=== PATIENT | female | born 1995 | race Caucasian/White ===

== ENCOUNTER 2017-07-18 23:57 | Emergency (ER) | payer OTHER ==
[~2017-07-18] VITALS: Ht 162.6 cm; Wt 80.9 kg
[~2017-07-18 23:57] MED LIST: CITA20TA4 PO; MEDR150I IM; NAPR-1168 PO; TRIA0.02 TOP
[2017-07-19 00:01] VITALS: TEMP 36.5; Ht 162.6 cm; Wt 80.9 kg
[2017-07-19] MEDS ORDERED: XYLOCAINE 1%/SOD BICARB 20 ML VIAL INFIL ONE (00:30)
[2017-07-19] MEDS ORDERED: DOXY100C76 PO (00:57)
[2017-07-19] MEDS ORDERED: OXYCODONE IR HOME PACK PO ONE (01:00)
[2017-07-19 01:12] VITALS: BP 122/70; PULSE 80; O2SAT 98
--- NOTE | 2017-07-19 01:48 | EMERGENCY ROOM VISIT NOTE ---
History First contact with patient: 00:08 Chief Complaint: INFECTION Stated Complaint: LUMP ON INNER THIGH NEAR GROIN AREA Nursing Triage Summary: c/o abscess to left inner thight that she was recently treated for that is not improving. History of Present Illness The patient is a 22 year old female who presents to the Emergency Room with complaints of left thigh infection for the past few days he saw family care yesterday and was started on antibiotics. She has had recurrent infections before. She was placed on doxycycline. Patient states the area got more swollen and painful for her. Patient has not seen a boat puller yet for this. Patient denies fevers, chest pain, dyspnea, nausea, vomiting, numbness, tingling, weakness. She is tolerating p.o. fluids and food. No IV drug abuse. Review of Systems A 6 system review of systems was completed with positives and pertinent negatives listed in the HPI. Past Medical/Surgical History HS Social History Smoking Status: Current Every Day Smoker Smokeless Tobacco Use: No Drug Use: none Occupation Status: employed Current/Historical Medications Scheduled Doxycycline Monohydrate (Monodox), 100 MG PO BID Medroxyprogesterone Acetate (C (Depo-Provera Contraceptiv), 150 MG IM Q3 MONTHS Physical Exam Vital Signs Date Time Temp Pulse Resp B/P (MAP) Pulse Ox O2 Delivery O2 Flow Rate FiO2 07/19/17 01:12 80 20 122/70 98 07/19/17 00:01 36.5 94 16 151/86 98 Room Air Physical Exam VITALS: Vitals are noted on the nurse's note and reviewed by myself. Vital signs stable. GENERAL: Pleasant female, in no acute distress, nondiaphoretic, well-developed well-nourished. SKIN: Capillary reflex less than 2 seconds. HEENT: Normocephalic. PERRLA. EOMI. Nares patent. Mucous membranes moist. Neck is supple without nuchal rigidity. HEART: Regular rate and rhythm without murmurs gallops or rubs. LUNGS: Clear to auscultation bilaterally without wheezes, rales or rhonchi. No retractions or accessory muscle use. ABDOMEN: Positive bowel sounds x 4. Normal tympanic percussion. Soft, nontender, without masses or organomegaly. Allred sign negative. No guarding or rebound tenderness. MUSCULOSKELETAL: No gross musculoskeletal defects. No pedal edema. No calf tenderness. Left proximal inner thigh with palpable abscess 2 cm x 2 cm that is fluctuant with minimal erythema. No lymphangitis. No inguinal lymph node enlargement. NEURO: Patient was alert and oriented to person place and time. Normal sensation to light and sharp touch. No focal neurological deficits. Medical Decision & Procedures Medications Administered Medications (Trade) Dose Ordered Sig/Shaq Route Start Time Stop Time Status Last Admin Dose Admin Oxycodone HCl (Roxicodone Immediate Rel 5MG Home Pack) 1 homepack UD ONCE PO 07/19/17 01:00 07/19/17 01:01 DC 07/19/17 01:00 1 HOMEPACK Procedure Incision & Drainage Indication: Abscess. Location: left inner thigh Verbal consent was obtained after the risks and benefits were explained, including but not limited to bleeding, scarring, infection, pain, and bone/joint /nerve damage. At this time, the risks of the procedure are less than the risks of NOT performing the procedure. A time out was taken and the correct patient and site identified. The skin was prepped with betadine and a sterile field set. The wound was anesthetized with 4 ml of 1% lidocaine without epinephrine. The abscess cavity was entered with a number 11 blade and bloody purulent material expressed. Copious irrigation was performed using normal saline. The wound was explored for foreign bodies and none found. Debridement was not performed. Packing placed and a sterile dressing applied. Detailed wound care instructions and signs and symptoms of worsening infection reviewed with the patient. No complications and the patient tolerated the procedure well. ED Course Prior records reviewed and summarized as above. Triage Nursing notes reviewed. The patient's history was concerning for swelling and redness of the skin. Differential diagnosis: Etiologies such as cellulitis, abscess, MRSA infection, DVT, necrotizing fasciitis, dermatitis, drug eruption, as well as others were entertained.. Physical examination: The physical examination was consistent with abscess ER treatment provided: I&D as above On reassessment the patient felt better. Diagnostics interpreted by me: Wound culture pending This appears to be abscess. This is drained as above and packed. Patient was advised to follow-up Friday for wound repacking and reevaluation with family care. She is given the packing material. She is informed not to open it. She is advised to continue her antibiotics. Her exam and history seem most consistent with HS. She has had a recurrent problem with this but has not seen a boat puller yet. She has not tried any creams either. Patient had no lymphangitis. She is afebrile nontoxic. No history of IV drug abuse. She is counseled on wound care and all questions are answered. She is advised to return to the ER mediate for fevers, pain, spreading infection, worsening signs or symptoms or as needed. By the evaluation outlined above emergent etiologies such as necrotizing fasciitis, DVT, as well as others were deemed relatively unlikely. The pt informed about the findings as listed above. All questions were answered and pleased with the treatment. Return instructions were outlined and the patient was discharged in stable condition. Referral: The patient was referred back to primary care physician for follow-up in 2 to 3 days for a recheck of the current condition. The chart was completed utilizing [employer] Speech voice recognition software. Grammatical errors, random word insertions, pronoun errors, and incomplete sentences are an occassional consequence of this system due to software limitations, ambient noise, and hardware issues. Any formal questions or concerns about the content, text, or information contained within the body of this dictation should be directly addressed to the physician surveyor's assistant for clarification. Medical Decision As above Medication Reconcilliation Current Medication List: was personally reviewed by me Blood Pressure Screening Patient's blood pressure: Normal blood pressure Impression Primary Impression: Abscess of left thigh Departure Information Dispostion Home / Self-Care Condition GOOD Forms WORK / SCHOOL INSTRUCTIONS, HOME CARE DOCUMENTATION FORM, IMPORTANT VISIT INFORMATION Patient Instructions Hidradenitis Suppurativa, My [facility] Additional Instructions Continue antibiotics as prescribed by her family care doctor. Frequently change the outer dressing. Do not remove the inner dressing. Bring your packing material to your follow-up appointment on Friday, do not open this container. Recommend that you see a boat puller for your ongoing skin problems. Ibuprofen(Motrin, Advil) may be used for fever or pain. Use 600mg every six hours as needed. Take with food. Avoid using more than 2400mg in a 24 hour period. Do not use 2400mg per day for more than three consecutive days without physician direction. Prolonged inappropriate use can lead to stomach upset or ulcers. (AND/OR) Acetaminophen(Tylenol) may be used for fever or pain. Use 1000mg every six hours as needed. Avoid using more than 3000mg in a 24 hour period. Rest and drink plenty of fluids. Continue current medications. Return to the ER for severe pain, persistent fevers, spreading redness, or any worsening of your condition. Follow up with your primary physician within 2-3 days for a recheck of the current condition.
[2017-07-19] MEDS ORDERED: OXYC-609 PO (18:21)
[2017-07-19] MEDS ORDERED: SULF800T23 PO (19:49)
== END 2017-07-19 01:14 | disposition home or self-care (01) ==
LOC: C.EDB 23:58 → C.EDC 07-19 01:14
DX: L02.416 Cutaneous abscess of left lower limb (principal); F17.200 Nicotine dependence, unspecified, uncomplicated; Z79.3 Long term (current) use of hormonal contraceptives

== ENCOUNTER 2017-07-19 17:44 | Emergency (ER) | payer OTHER ==
[~2017-07-19] VITALS: Ht 162.6 cm; Wt 79.8 kg
[~2017-07-19 17:44] MED LIST changes: +DOXY100C76 PO
[2017-07-19 17:46] VITALS: TEMP 36.4; Ht 162.6 cm; Wt 79.8 kg
[2017-07-19] MEDS ORDERED: SODIUM CHLORIDE 0.9% 1000ML 1,000 ML IV STA (17:53)
[2017-07-19 18:21] LABS: BASO % 0.2 %; BASO ABS # 0.02 K/uL (0-0.2); EOS % 0.8 %; EOS ABS # 0.08 K/uL (0-0.5); HEMATOCRIT 38.2 % (37-47); HEMOGLOBIN 13.2 g/dL (12.0-16.0); IG# 0.03 K/uL (0.00-0.02); LYMPH % 20.5 %; LYMPH ABS # 1.94 K/uL (1.2-3.4); MEAN CELL VOLUME 85.5 fL (80-100); MEAN CORPUSCULAR HEMOGLOBIN 29.5 pg (25-34); MEAN CORPUSCULAR HGB CONC 34.6 g/dl (32-36); MEAN PLATELET VOLUME 9.2 fL (7.4-10.4); MONO ABS # 0.66 K/uL (0.11-0.59); NEUT % 71.2 %; NEUT ABS # 6.75 K/uL (1.4-6.5); PLATELET COUNT 222 K/uL (130-400); RED CELL DISTRIBUTION WIDTH CV 13.5 % (11.5-14.5); RED CELL DISTRIBUTION WIDTH SD 41.8 fL (36.4-46.3); WHITE BLOOD COUNT 9.48 K/uL (4.8-10.8)
[2017-07-19] MEDS ORDERED: OXYC-609 PO (18:21)
[2017-07-19 18:34] LABS: PTT PATIENT 25.2 SECONDS (21.0-31.0)
[2017-07-19 18:50] LABS: ALBUMIN 3.5 gm/dl (3.4-5.0); ALT/SGPT 17 U/L (12-78); BLOOD UREA NITROGEN 9 mg/dl (7-18); CALCIUM 8.5 mg/dl (8.5-10.1); CARBON DIOXIDE 22 mmol/L (21-32); CREATININE 0.85 mg/dl (0.60-1.20); GLUCOSE 116 mg/dl (70-99); LIPASE 90 U/L (73-393); SODIUM 140 mmol/L (136-145)
[2017-07-19 18:58] LABS: ALKALINE PHOSPHATASE 100 U/L (45-117); AST/SGOT 9 U/L (15-37); CKMB < 0.5 ng/ml (0.5-3.6); TOTAL PROTEIN 6.9 gm/dl (6.4-8.2)
[2017-07-19] MEDS ORDERED: POTASSIUM CHLORIDE 10 MEQ TABCR PO STA (19:42)
[2017-07-19] MEDS ORDERED: SULFAMETHOXAZOLE/TRIMETHOPRIM DS 800/160MG TAB PO ONE (19:45)
[2017-07-19] MEDS ORDERED: SULF800T23 PO (19:49)
--- NOTE | 2017-07-19 19:50 | EMERGENCY ROOM VISIT NOTE ---
History Report prepared by Marino: Ketan Knapp Under the Supervision of: Dr. Diego Zuluaga D.O. First contact with patient: 17:50 Chief Complaint: SYNCOPE Stated Complaint: LIGHT HEADED, PASSED OUT History of Present Illness The patient is a 22 year old female who presents to the Emergency Room with complaints of syncope that occurred just prior to arrival. She had a cyst on inner thigh that was drained yesterday at [facility] and given oxycodone and antibiotics. When she went to checkout at [facility] today, she sat down because she felt lightheaded, felt her vision and hearing faded, and then slid off the bench. She states her right arm feels very weak and that she feels shaky. She states she has a headache with an unknown head strike. She denies any bumps on her head. Of note, she is on the DepoProvera shot. 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 She denies any bumps on her head. Review of Systems See HPI for pertinent positives & negatives. A total of 10 systems reviewed and were otherwise negative. Social History Smoking Status: Current Every Day Smoker Alcohol Use: none Drug Use: none Housing Status: lives with family Occupation Status: employed Current/Historical Medications Scheduled Doxycycline Monohydrate (Monodox), 100 MG PO BID Medroxyprogesterone Acetate (C (Depo-Provera Contraceptiv), 150 MG IM Q3 MONTHS Sulfa/Trimethoprim (Bactrim Ds 800MG/160MG), 1 TAB PO BID Scheduled PRN Oxycodone HCl (Oxycodone HCl), 5 MG PO Q6 PRN for Pain Allergies Coded Allergies: Amoxicillin (Verified Allergy, Intermediate, hives, 07/19/17) Latex (Verified Allergy, Unknown, Hands break out into hives and itchiness., 07/19/17) Reported by PT. Physical Exam Vital Signs Date Time Temp Pulse Resp B/P (MAP) Pulse Ox O2 Delivery O2 Flow Rate FiO2 07/19/17 19:54 76 16 103/61 99 Room Air 07/19/17 19:10 89 16 119/64 99 Room Air 07/19/17 18:39 119/64 127/70 126/63 07/19/17 18:38 77 18 116/61 98 Room Air 07/19/17 18:09 85 07/19/17 17:46 36.4 97 18 146/85 99 Room Air Physical Exam CONSTITUTIONAL/VITAL SIGNS: Reviewed / noted above. GENERAL: Non-toxic in appearance. INTEGUMENTARY: Warm, dry, and [place]. HEAD: Normocephalic. EYES: without scleral icterus or trauma. ENT/OROPHARYNX: clear and moist. LYMPHADENOPATHY/NECK: Is supple without lymphadenopathy or meningismus. RESPIRATORY: Lungs clear and equal. CARDIOVASCULAR: Regular rate and rhythm. GI/ABDOMEN: Soft and nontender. No organomegaly or pulsatile mass. No rebound or guarding. Normal bowel sounds. EXTREMITIES: Warm and well perfused. BACK: No CVA tenderness. NEUROLOGICAL: Intact without focal deficits. PSYCHIATRIC: normal affect. MUSCULOSKELETAL: Normally developed with good muscle tone. Medical Decision & Procedures Laboratory Results 07/19/17 18:05 Red Blood Count 4.47, Mean Corpuscular Volume 85.5, Mean Corpuscular Hemoglobin 29.5, Mean Corpuscular Hemoglobin Concent 34.6, Mean Platelet Volume 9.2, Neutrophils (%) (Auto) 71.2, Lymphocytes (%) (Auto) 20.5, Monocytes (%) (Auto) 7.0, Eosinophils (%) (Auto) 0.8, Basophils (%) (Auto) 0.2, Neutrophils # (Auto) 6.75, Lymphocytes # (Auto) 1.94, Monocytes # (Auto) 0.66, Eosinophils # (Auto) 0.08, Basophils # (Auto) 0.02 07/19/17 18:05 Test 07/19/17 18:05 07/19/17 19:15 White Blood Count 9.48 K/uL (4.8-10.8) Red Blood Count 4.47 M/uL (4.2-5.4) Hemoglobin 13.2 g/dL (12.0-16.0) Hematocrit 38.2 % (37-47) Mean Corpuscular Volume 85.5 fL (80-100) Mean Corpuscular Hemoglobin 29.5 pg (25-34) Mean Corpuscular Hemoglobin Concent 34.6 g/dl (32-36) Platelet Count 222 K/uL (130-400) Mean Platelet Volume 9.2 fL (7.4-10.4) Neutrophils (%) (Auto) 71.2 % Lymphocytes (%) (Auto) 20.5 % Monocytes (%) (Auto) 7.0 % Eosinophils (%) (Auto) 0.8 % Basophils (%) (Auto) 0.2 % Neutrophils # (Auto) 6.75 K/uL (1.4-6.5) Lymphocytes # (Auto) 1.94 K/uL (1.2-3.4) Monocytes # (Auto) 0.66 K/uL (0.11-0.59) Eosinophils # (Auto) 0.08 K/uL (0-0.5) Basophils # (Auto) 0.02 K/uL (0-0.2) RDW Standard Deviation 41.8 fL (36.4-46.3) RDW Coefficient of Variation 13.5 % (11.5-14.5) Immature Granulocyte % (Auto) 0.3 % Immature Granulocyte # (Auto) 0.03 K/uL (0.00-0.02) Prothrombin Time 10.5 SECONDS (9.0-12.0) Prothromb Time International Ratio 1.0 (0.9-1.1) Activated Partial Thromboplast Time 25.2 SECONDS (21.0-31.0) Partial Thromboplastin Ratio 1.0 Anion Gap 8.0 mmol/L (3-11) Est Creatinine Clear Calc Drug Dose 105.2 ml/min Estimated GFR () 111.9 Estimated GFR (Non- 96.6 BUN/Creatinine Ratio 10.2 (10-20) Calcium Level 8.5 mg/dl (8.5-10.1) Magnesium Level 1.9 mg/dl (1.8-2.4) Total Bilirubin 0.4 mg/dl (0.2-1) Direct Bilirubin 0.1 mg/dl (0-0.2) Aspartate Amino Transf (AST/SGOT) 9 U/L (15-37) Alanine Aminotransferase (ALT/SGPT) 17 U/L (12-78) Alkaline Phosphatase 100 U/L (45-117) Total Creatine Kinase 78 U/L (26-192) Creatine Kinase MB < 0.5 ng/ml (0.5-3.6) Creatine Kinase MB Ratio (0-3.0) Troponin I < 0.015 ng/ml (0-0.045) Total Protein 6.9 gm/dl (6.4-8.2) Albumin 3.5 gm/dl (3.4-5.0) Lipase 90 U/L (73-393) Thyroid Stimulating Hormone (TSH) 0.917 uIu/ml (0.300-4.500) Urine Color YELLOW Urine Appearance CLOUDY (CLEAR) Urine pH 6.0 (4.5-7.5) Urine Specific Martin 1.018 (1.000-1.030) Urine Protein NEG (NEG) Urine Glucose (UA) NEG (NEG) Urine Ketones NEG (NEG) Urine Occult Blood NEG (NEG) Urine Nitrite NEG (NEG) Urine Bilirubin NEG (NEG) Urine Urobilinogen NEG (NEG) Urine Leukocyte Esterase LARGE (NEG) Urine WBC (Auto) >30 /hpf (0-5) Urine RBC (Auto) 0-4 /hpf (0-4) Urine Hyaline Casts (Auto) /lpf (0-5) Urine Epithelial Cells (Auto) >30 /lpf (0-5) Urine Bacteria (Auto) 2+ (NEG) Urine Pathogenic Casts /lpf (0) Laboratory results as stated above per my review. Medications Administered Medications (Trade) Dose Ordered Sig/Shaq Route Start Time Stop Time Status Last Admin Dose Admin Sodium Chloride 1,000 ml @ 999 mls/hr Q1H1M STAT IV 07/19/17 17:53 07/19/17 18:53 DC 07/19/17 18:07 999 MLS/HR Potassium Chloride (Klor-Con M10) 40 meq NOW STAT PO 07/19/17 19:42 07/19/17 19:43 DC 07/19/17 19:55 40 MEQ Trimethoprim/ Sulfamethoxazole (Septra Ds 800/ 160MG Tab) 1 tab NOW ONCE PO 07/19/17 19:45 07/19/17 19:47 DC 07/19/17 19:55 1 TAB ECG Per My Interpretation Indication: syncope Rate (beats per minute): 74 Rhythm: normal sinus Findings: no ectopy, other (No ST elevation) ED Course 1750: Previous medical records were reviewed. The patient was evaluated in room A12B. A complete history and physical examination was performed. 1753: Sodium Chloride 1000 ml @ 999 mls/hr IV. 1941: Klor-Con M10 40 meq, PO. 1944: Septra DS 800/160 mg Tab, 1 Tab PO. 1954: I checked on the patient and updated her on her results. 1999: On reevaluation, the patient is doing well. I discussed the results and findings with the patient. She verbalized agreement of the treatment plan. She was discharged home. Medical Decision Differential includes acute cardiac dysrhythmia, microinfarction, CVA, TIA, dehydration, anemia, electrolyte disturbance, seizure, trauma, intracranial bleeding, acute vascular catastrophe, thoracic aortic dissection, PE, abdominal aortic aneurysm rupture, ectopic rupture. This is a 22-year-old female who presents to the ED with a chief complaint of near syncope/syncope. The patient states that she was placed on oxycodone yesterday for an inner thigh abscess. She was also placed on doxycycline. Today she was walking at [facility] when she began feeling lightheaded. She states that her hearing became muffled and her vision became narrowed. She states that she felt like she might pass out. She sat down on the seat. She then passed out and slid down the chair onto the floor. She may have bumped her head. She states that she is on sure. She has a mild discomfort in the left posterior head region with palpation. There is no obvious hematoma. Patient otherwise denies injury. She is currently feeling better. She does feel a little shaky. The patient's physical exam was normal. Vital signs and orthostatic vital signs were normal. EKG shows normal sinus rhythm. CBC is normal, potassium slightly low at 3.0. Chemistry panel is otherwise unremarkable. The patient's urine is suggestive of a possible UTI. The patient was treated with IV fluids, p.o. potassium and p.o. Bactrim. She was told the results. She is felt to be stable for discharge. Medication Reconcilliation Current Medication List: was personally reviewed by me Blood Pressure Screening Patient's blood pressure: Elevated blood pressure Blood pressure disposition: Elevated BP felt to be situational Impression Primary Impression: Syncope Additional Impressions: UTI (urinary tract infection) Hypokalemia Scribe Attestation The scribe's documentation has been prepared under my direction and personally reviewed by me in its entirety. I confirm that the note above accurately reflects all work, treatment, procedures, and medical decision making performed by me. Departure Information Dispostion Home / Self-Care Prescriptions Sulfa/Trimethoprim (Bactrim Ds 800MG/160MG) Tab 1 TAB PO BID, #10 TAB Prov: Diego Zuluaga D.O. 07/19/17 Referrals No Doctor, Assigned (PCP) Patient Instructions My [facility], UTI Additional Instructions Bactrim as prescribed for UTI. Follow-up with your doctor for further care and evaluation in 1-2 days. Return to the emergency department for worsening or new symptoms or any concerns. You have been examined and treated today on an emergency basis only. This is not a substitute for, or an effort to provide, complete comprehensive medical care. It is impossible to recognize and treat all injuries or illnesses in a single emergency department visit. It is therefore important that you follow up closely with your doctor. Call as soon as possible for an appointment. Problem Qualifiers
[2017-07-19 19:54] VITALS: BP 103/61; PULSE 76; O2SAT 99
== END 2017-07-19 20:00 | disposition home or self-care (01) ==
LOC: C.EDB 17:45 → C.EDA 20:00
DX: R55 Syncope and collapse (principal); N39.0 Urinary tract infection, site not specified; E87.6 Hypokalemia; Z98.890 Other specified postprocedural states; F17.210 Nicotine dependence, cigarettes, uncomplicated; Z79.3 Long term (current) use of hormonal contraceptives; Z88.0 Allergy status to penicillin; Z91.040 Latex allergy status

== ENCOUNTER 2017-08-24 22:55 | Emergency (ER) | payer OTHER ==
[~2017-08-24] VITALS: Ht 162.6 cm; Wt 79.7 kg
[~2017-08-24 22:55] MED LIST changes: -CITA20TA4 PO; -NAPR-1168 PO; +OXYC-609 PO; +SULF800T23 PO; -TRIA0.02 TOP
[2017-08-24 23:00] VITALS: BP 142/86; PULSE 84; TEMP 36.6; Ht 162.6 cm; Wt 79.7 kg
[2017-08-24] MEDS ORDERED: SERT50TA PO (23:10)
[2017-08-24] MEDS ORDERED: KETOROLAC TROMETHAMINE 60 MG/2 ML VIAL IM STA (23:20)
[2017-08-24] MEDS ORDERED: FLEXERIL HOME PACK 10 MG VIAL PO ONE (23:30)
[2017-08-24] MEDS ORDERED: CYCL10TA6 PO (23:32)
[2017-08-24] MEDS ORDERED: NPR500 PO (23:32)
--- NOTE | 2017-08-24 23:34 | EMERGENCY ROOM VISIT NOTE ---
History First contact with patient: 23:04 Chief Complaint: SHOULDER PAIN Stated Complaint: SEVERE SHOULDER/NECK PAIN History of Present Illness The patient is a 22 year old female who presents to the Emergency Room with complaints of left-sided upper back/neck pain. The patient reports that she has had a pain between her shoulder blade and neck on the left side for the past 1 week. She states that she woke up with the pain one day. She states that she has tried Aleve, heating pads and [id number] lidocaine patch without improvement. The pain radiates into the arm at times. She rates the discomfort a 10/10. She does report a history of something similar on her right side and was told that she pulled a muscle at that time. She denies numbness or weakness. She denies chest pain or shortness of breath. She denies headache or neck stiffness. She denies fevers. Review of Systems A 6 point review of systems was reviewed with the patient with pertinent positives and negatives as per history of present illness. All else were negative. Past Medical/Surgical History Medical Problems: (1) No significant active problems Social History Smoking Status: Current Every Day Smoker Alcohol Use: none Drug Use: none Housing Status: lives with family Occupation Status: employed Current/Historical Medications Scheduled Cyclobenzaprine Hcl (Flexeril), 10 MG PO TID Doxycycline Monohydrate (Monodox), 100 MG PO DAILY Naproxen (Naprosyn), 500 MG PO BID Sertraline (Zoloft), 50 MG PO DAILY Physical Exam Vital Signs Date Time Temp Pulse Resp B/P (MAP) Pulse Ox O2 Delivery O2 Flow Rate FiO2 08/24/17 23:50 18 99 08/24/17 23:00 36.6 84 18 142/86 98 Room Air Physical Exam VITALS: Vitals are noted on the nurse's note and reviewed by myself. Vital signs stable. GENERAL: This is a 22-year-old female, in no acute distress, nondiaphoretic, well-developed well-nourished. SKIN: The skin was without rashes. EARS: External auditory canals clear, tympanic membranes pearly valentin without erythema or effusion bilaterally. EYES: Pupils equal round and reactive to light and accommodation. Extraocular movements intact. MOUTH: Mucous membranes moist. Tonsils are not enlarged. Pharynx without erythema or exudate. NECK: Supple without nuchal rigidity. No lymphadenopathy. Cervical spine is nontender. No meningismus. HEART: Regular rate and rhythm without murmurs gallops or rubs. LUNGS: Clear to auscultation bilaterally without wheezes, rales or rhonchi. MUSCULOSKELETAL: There is a palpable muscle spasm in the left thoracic paraspinous muscles with significant tenderness to palpation in that area. Full range of motion of bilateral upper extremities and strength 5/5. Full range of motion of the neck. No tenderness of the spinous processes or bony tenderness of the shoulder. NEURO: Patient was alert and oriented to person place and time. Normal sensation of bilateral upper extremities. Medical Decision & Procedures Medications Administered Medications (Trade) Dose Ordered Sig/Shaq Route Start Time Stop Time Status Last Admin Dose Admin Ketorolac Tromethamine (Toradol Inj) 60 mg NOW STAT IM 08/24/17 23:20 08/24/17 23:21 DC 08/24/17 23:36 60 MG Cyclobenzaprine HCl (FLEXERIL 10MG Home Pack) 1 homepack UD ONCE PO 08/24/17 23:30 08/24/17 23:31 DC 08/24/17 23:36 1 HOMEPACK Medical Decision Differential diagnosis includes muscle spasm, muscle strain, cervical radiculopathy, thoracic radiculopathy, compression fracture, among others. The patient is a 22-year-old female who presents today complaining of pain in the left upper back/shoulder. Physical exam shows a very tender palpable muscle spasm in the area of the patient's discomfort. There is no bony tenderness. She was given 60 mg Toradol IM and a home pack of Flexeril. She was given prescriptions for Flexeril and Naprosyn. I discussed conservative measures with the patient including heating pad, icy hot/BenGay, and massage. Recommended follow-up with the PCP this week for a recheck. Based on the patient's presentation and work up, I feel the patient is stable for outpatient treatment. The patient was educated to return to the emergency department for any worsening of their current condition or new/concerning symptoms. She will follow up with her PCP. Medication Reconcilliation Current Medication List: was personally reviewed by me Blood Pressure Screening Patient's blood pressure: Elevated blood pressure Blood pressure disposition: Elevated BP felt to be situational Impression Primary Impression: Spasm of thoracic back muscle Departure Information Dispostion Home / Self-Care Condition GOOD Prescriptions Naproxen (Naprosyn) 500 Mg Tab 500 MG PO BID for 10 Days, #20 TAB Prov: Tita Casanova PA-C 08/24/17 Cyclobenzaprine Hcl (FLEXERIL) 10 Mg Tab 10 MG PO TID for 5 Days, #15 TAB Prov: Tita Casanova PA-C 08/24/17 Referrals Sandeep Hull M.D. (PCP) Patient Instructions My [facility] Additional Instructions You have been treated in the Emergency Department for Back/shoulder Pain. You have been prescribed Flexeril (cyclobenzaprine) 1-2 tabs orally, three times per day. Do NOT exceed 30 mg (6 tabs) per day. Take your first dose at bedtime as it can make you drowsy. Always take all medications as prescribed. Naprosyn as prescribed. For pain control, you can use the following [id number] medicines (if >12 yo): - Regular strength (325mg/tab) Tylenol (acetaminophen) 2 tabs every 4-6 hours as needed. Do not exceed 12 tablets in a 24 hour period. Avoid taking more than 4 grams (4000 mg) of Tylenol per day. This includes any other sources of acetaminophen you may take on a regular basis. Apply a heating pad to the area for pain. You should schedule a follow-up appointment in 2-3 days with your Primary Care Provider for further evaluation and treatment of your back pain. Return to the Emergency Department if your current symptoms worsen despite treatment course outlined above, or if you develop any of the following symptoms : intractable pain despite aforementioned treatment course, loss of control of your bowel or bladder, numbness or tingling in your groin, or development of a fever.
[2017-08-24 23:50] VITALS: O2SAT 99
== END 2017-08-24 23:50 | disposition home or self-care (01) ==
LOC: C.EDB 22:56 → C.EDC 23:50
DX: M62.830 Muscle spasm of back (principal); F17.210 Nicotine dependence, cigarettes, uncomplicated; Z79.899 Other long term (current) drug therapy